=== PATIENT | female | born 1990 | race Caucasian/White ===

== ENCOUNTER 2019-08-08 08:48 | Emergency (ER) | payer MEDICAID ==
[~2019-08-08] VITALS: Ht 170.2 cm; Wt 79.8 kg
[2019-08-08 10:40] LABS: BASOPHILS # (AUTO) 0.04 x10^3/uL (0-0.1); BASOPHILS % (AUTO) 1 % (0-1); EOSINOPHILS # (AUTO) 0.05 x10^3/uL (0-0.4); EOSINOPHILS % (AUTO) 1 % (1-7); LYMPHOCYTES # (AUTO) 1.21 x10^3/uL (1-3.4); LYMPHOCYTES % (AUTO) 22 % (22-44); MD NO; MEAN CORPUSCULAR HEMOGLOBIN 30.3 pg (27.0-34.8); MEAN CORPUSCULAR VOLUME 89.3 fL (80-100); MEAN PLATELET VOLUME 7.9 fL (7.4-10.4); MONOCYTES # (AUTO) 0.52 x10^3/uL (0.2-0.8); MONOCYTES % (AUTO) 10 % (2-9); NEUTROPHILS # (AUTO) 3.64 x10^3/uL (1.8-6.8); NEUTROPHILS % (AUTO) 67 % (42-75); PLATELET COUNT 277 x10^3/uL (130-400); RED BLOOD COUNT 4.48 x10^6/uL (3.82-5.3); RED CELL DISTRIBUTION WIDTH 12.7 % (9.6-15.2)
[2019-08-08 10:50] LABS: RAPID INFLUENZA A Negative (Negative); RAPID INFLUENZA B Negative (Negative)
[2019-08-08 10:52] LABS: ALBUMIN 3.5 g/dL (3.4-5.0); ANION GAP 8 mmol/L (5-15); CALCIUM 8.3 mg/dL (8.5-10.1); CHLORIDE 108 mmol/L (98-107); CREATININE 0.58 mg/dL (0.55-1.02)
[2019-08-08 11:01] LABS: CULTURE INDICATED? YES; MICROSCOPIC INDICATED
--- NOTE | 2019-08-08 11:32 | NUR ---
PT IN ROOM. BOYFRIEND AT BEDSIDE. NADN. VAZQUEZ. PT EXPRESSES NO WANTS OR NEEDS AT THIS TIME. CALL LIGHT IN REACH AND PT ENCOURAGED TO CALL WITH ANY NEEDS.
[2019-08-08 11:41] VITALS: BP 115/63
== END 2019-08-08 12:49 | disposition home or self-care (01) ==
LOC: ED 10:45
DX: O20.0 Threatened abortion (principal); N30.00 Acute cystitis without hematuria; Z3A.01 Less than 8 weeks gestation of pregnancy
CPT/HCPCS: 36415; 76801; 80048; 81001; 82040; 84702; 85025; 87086; 87400; 99284

== ENCOUNTER 2019-12-24 23:51 | Emergency (ER) | payer MEDICAID ==
[~2019-12-24] VITALS: Ht 170.2 cm; Wt 74.4 kg
[2019-12-24 23:57] VITALS: BP 119/71
--- NOTE | 2019-12-25 00:07 | NUR ---
L&D RN at pt's bedside
--- NOTE | 2019-12-25 00:11 | NUR ---
pt resting on gurney, monitors applied, siderails up x2, call light within reach. pa at pt's bedside for eval
--- NOTE | 2019-12-25 00:26 | NUR ---
PT STATED " I THINK I HAVE STAPH, I FORGOT TO TELL THE DOCTOR, I WANT MY WOUNDS CHECKED I GOT THEM FROM [facility]". NOTED PT WITH MULTIPLE DRY SCAB AREAS TO B/L LEGS, RIGHT ARM AND ABDOMEN.
--- NOTE | 2019-12-25 00:27 | NUR ---
ERP AT PT'S BEDSIDE FOR EVAL
== END 2019-12-25 00:50 | disposition home or self-care (01) ==
LOC: ED 12-25 00:31
DX: O99.322 Drug use complicating pregnancy, second trimester (principal); O99.712 Diseases of the skin and subcutaneous tissue complicating pregnancy, second trimester; O99.332 Smoking (tobacco) complicating pregnancy, second trimester; F15.10 Other stimulant abuse, uncomplicated; F11.10 Opioid abuse, uncomplicated; F13.10 Sedative, hypnotic or anxiolytic abuse, uncomplicated; L03.116 Cellulitis of left lower limb; L03.115 Cellulitis of right lower limb; L03.311 Cellulitis of abdominal wall; F17.210 Nicotine dependence, cigarettes, uncomplicated; Z3A.26 26 weeks gestation of pregnancy
CPT/HCPCS: 99283; 99406

== ENCOUNTER 2021-01-11 13:22 | Outpatient (CLI) | payer SELFPAY ==
[~2021-01-11] VITALS: Ht 170.2 cm; Wt 69.5 kg
[2021-01-11 13:50] LABS: MICROSCOPIC INDICATED
[2021-01-11 13:59] LABS: AMPHETAMINE SCREEN, URINE Negative (Negative); BARBITURATE SCREEN, URINE Negative (Negative); BENZODIAZEPINE SCREEN, URINE Negative (Negative); CANNABINOID SCREEN, URINE Negative (Negative); COCAINE SCREEN, URINE Negative (Negative); METHADONE SCREEN, URINE Positive (Negative); OPIATE SCREEN, URINE Negative (Negative)
== END 2021-01-11 14:27 | disposition home or self-care (01) ==
LOC: LDOP 13:22
PROVIDERS: ATTEND Obstetrics & Gynecology
DX: O26.893 Other specified pregnancy related conditions, third trimester (principal); R52 Pain, unspecified; Z3A.33 33 weeks gestation of pregnancy
CPT/HCPCS: 59025; 80307; 81001; 87077; 87086

== ENCOUNTER 2021-02-20 06:26 | Inpatient (IN) | payer BC ==
[~2021-02-20] VITALS: Ht 170.2 cm; Wt 68.1 kg
[2021-02-21] MEDS ORDERED: TERBUTALINE 1 MG/ML, 1ML IVPush PRN (10:00)
[2021-02-21] MEDS ORDERED: CALCIUM CARBONATE 500 MG TAB.CHEW PO PRN (10:00)
[2021-02-21] MEDS ORDERED: TERBUTALINE 1 MG/ML, 1ML SQ PRN (10:00)
[2021-02-21] MEDS ORDERED: ONDANSETRON 2MG/ML, 2ML IVPush PRN ×2 (10:00→13:00)
[2021-02-21] MEDS ORDERED: FENTANYL PF 100 MCG/2ML IV PRN (10:00)
[2021-02-21] MEDS ORDERED: FENTANYL PF 100 MCG/2ML IVPush PRN (10:00)
[2021-02-21] MEDS ORDERED: PENICILLIN GK 5,000,000 UNITS in DEXTROSE 5% 100 ML IVPB ONE (10:00)
[2021-02-21] MEDS: D5%-LACTATED RINGERS 1,000 ML IV SCH ×2 (10:00→18:00)
[2021-02-21] MEDS ORDERED: OXYTOCIN 30U/ 0.9% NaCL 500ML 500 ML IV PRN (10:00)
[2021-02-21] MEDS ORDERED: OXYTOCIN 30U/ 0.9% NaCL 500ML 500 ML IV ONE (10:00)
[2021-02-21 10:18] VITALS: BP 121/84
[2021-02-21] MEDS ORDERED: OXYTOCIN 30U/ 0.9% NaCL 500ML 500 ML ONE (10:29)
[2021-02-21] MEDS ORDERED: NEWBORN KIT ONE (10:29)
[2021-02-21] MEDS ORDERED: PLEASE ENTER HEIGHT AND WEIGHT MC SCH (10:30)
[2021-02-21 10:35] LABS: BASOPHILS % (AUTO) 1 % (0-1); EOSINOPHILS % (AUTO) 5 % (1-7); LYMPHOCYTES % (AUTO) 33 % (22-44); MEAN CORPUSCULAR HEMOGLOBIN 28.6 pg (27.0-34.8); MEAN CORPUSCULAR HGB CONC 34.3 g/dL (32.4-35.8); MEAN PLATELET VOLUME 7.8 fL (7.4-10.4); MONOCYTES % (AUTO) 8 % (2-9); NEUTROPHILS % (AUTO) 55 % (42-75); PLATELET COUNT 289 x10^3/uL (130-400); RED BLOOD COUNT 3.87 x10^6/uL (3.82-5.3); RED CELL DISTRIBUTION WIDTH 13.2 % (9.6-15.2)
[2021-02-21 11:02] LABS: AMPHETAMINE SCREEN, URINE Negative (Negative); BARBITURATE SCREEN, URINE Negative (Negative); BENZODIAZEPINE SCREEN, URINE Negative (Negative); CANNABINOID SCREEN, URINE Negative (Negative); COCAINE SCREEN, URINE Negative (Negative); METHADONE SCREEN, URINE Positive (Negative); OPIATE SCREEN, URINE Negative (Negative)
[2021-02-21] MEDS: LACTATED RINGERS 1,000 ML IV SCH ×5 (11:20→21:00)
[2021-02-21] MEDS ORDERED: BUPIVACAINE 0.25% ONE (12:31)
[2021-02-21] MEDS ORDERED: FENTANYL/BUPIV./NS/PF 250 ML EPIDCONT ONE (12:31)
[2021-02-21] MEDS ORDERED: LACTATED RINGERS 1,000 ML IVBOLUS PRN (13:00)
[2021-02-21] MEDS ORDERED: FENTANYL/BUPIV./NS/PF 250 ML EPIDCONT SCH (13:00)
[2021-02-21] MEDS ORDERED: EPHEDRINE 50 MG/ML, 1ML IVPush PRN (13:00)
[2021-02-21] MEDS ORDERED: NALOXONE 0.4 MG/ML, 1ML IVPush PRN (13:00)
[2021-02-21] MEDS ORDERED: DIPHENHYDRAMINE 50 MG/ML, 1ML IVPush PRN (13:00)
[2021-02-21] MEDS: PENICILLIN GK 2,500,000 UNITS in DEXTROSE 5% 100 ML IVPB SCH ×2 (15:08→19:21)
[2021-02-21] MEDS ORDERED: PREN1TAB10 PO (15:23)
[2021-02-21] MEDS ORDERED: METH5TAB2 PO (15:29)
[2021-02-21] MEDS: OXYTOCIN 30U/ 0.9% NaCL 500ML 500 ML IV SCH (20:25)
[2021-02-21] MEDS ORDERED: METHYLERGONOVINE 0.2 MG/ML IM PRN (20:30)
[2021-02-21] MEDS ORDERED: CARBOPROST TROMETHAMINE 250 MCG/ML, 1ML IM PRN (20:30)
[2021-02-21] MEDS ORDERED: SIMETHICONE 80 MG CHEW TAB PO PRN (20:30)
[2021-02-21] MEDS ORDERED: ONDANSETRON 2MG/ML, 2ML IV PRN (20:30)
[2021-02-21] MEDS ORDERED: MISOPROSTOL 200 MCG TABLET PR PRN (20:30)
[2021-02-21] MEDS: IBUPROFEN 800 MG TABLET PO PRN (21:47)
[2021-02-21 23:05] VITALS: BP 110/75
[2021-02-22 04:15] VITALS: BP 118/73
[2021-02-22 05:35] LABS: BASOPHILS % (AUTO) 0 % (0-1); EOSINOPHILS % (AUTO) 2 % (1-7); LYMPHOCYTES % (AUTO) 24 % (22-44); MEAN CORPUSCULAR HEMOGLOBIN 28.2 pg (27.0-34.8); MEAN CORPUSCULAR HGB CONC 33.7 g/dL (32.4-35.8); MONOCYTES % (AUTO) 8 % (2-9); NEUTROPHILS % (AUTO) 65 % (42-75); PLATELET COUNT 255 x10^3/uL (130-400); RED BLOOD COUNT 4.09 x10^6/uL (3.82-5.3); RED CELL DISTRIBUTION WIDTH 13.1 % (9.6-15.2)
[2021-02-22] MEDS: IBUPROFEN 800 MG TABLET PO PRN ×2 (06:04→19:55)
[2021-02-22] MEDS: OXYTOCIN 30U/ 0.9% NaCL 500ML 500 ML IV SCH ×2 (06:30→16:30)
[2021-02-22 08:40] VITALS: BP 111/72
[2021-02-22] MEDS: METHADONE INTENSOL 10 MG/ML ORAL CONC PO SCH (09:00)
[2021-02-22] MEDS: PRENATAL VIT/IRON/FA 1 EACH TABLET PO SCH (11:01)
[2021-02-22] MEDS: DOCUSATE 100 MG CAPSULE PO PRN ×2 (11:01→19:55)
[2021-02-22 12:05] VITALS: BP 119/76
[2021-02-22 19:30] VITALS: BP 117/79
[2021-02-23 07:40] VITALS: BP 120/79
[2021-02-23] MEDS: IBUPROFEN 800 MG TABLET PO PRN ×2 (08:00→17:13)
[2021-02-23] MEDS: PRENATAL VIT/IRON/FA 1 EACH TABLET PO SCH (08:01)
[2021-02-23] MEDS: DOCUSATE 100 MG CAPSULE PO PRN (08:01)
[2021-02-23] MEDS ORDERED: IBUP-1223 PO (08:45)
[2021-02-23] MEDS: METHADONE INTENSOL 10 MG/ML ORAL CONC PO SCH (09:00)
== END 2021-02-23 17:15 | disposition home or self-care (01) | DRG 806 ==
LOC: LDIP 02-21 08:54 → 2NW 02-21 22:45
PROVIDERS: ADMIT Obstetrics & Gynecology; ATTEND Obstetrics & Gynecology
PROC: 10E0XZZ Delivery of Products of Conception, External Approach (ICD-10-PCS; principal; 2021-02-21)
PROC: 10907ZC Drainage of Amniotic Fluid, Therapeutic from Products of Conception, Via Natural or Artificial Opening (ICD-10-PCS; 2021-02-21)
DX: O98.42 Viral hepatitis complicating childbirth (principal); O99.324 Drug use complicating childbirth; Z37.0 Single live birth; F11.20 Opioid dependence, uncomplicated; Z20.822 Contact with and (suspected) exposure to COVID-19; B19.20 Unspecified viral hepatitis C without hepatic coma; Z3A.39 39 weeks gestation of pregnancy; Z88.2 Allergy status to sulfonamides; Z88.8 Allergy status to other drugs, medicaments and biological substances
CPT/HCPCS: 36415; 80307; 85025; 86592; 86850; 86900; 87635; G0378; J2540; J2590; J3010; J7120